=== PATIENT | female | born 1995 | race Two or more races ===

== ENCOUNTER 2023-04-09 15:31 | Emergency (ER) | payer BC ==
[~2023-04-09] VITALS: Ht 182.9 cm; Wt 99.8 kg
[2023-04-09] MEDS ORDERED: METHYLPHENIDATE10 M6 PO (15:38)
[2023-04-09] MEDS ORDERED: ACETAMINOPHEN 500 MG GEL..CAP PO ONE (17:15)
[2023-04-09 17:34] LABS: HEMATOCRIT 36.8 % (36.0-45.00); HEMOGLOBIN 12.7 g/dL (12.0-15.00); MEAN CELL VOLUME 87.7 fL (80.00-100.00); MEAN CORPUSCULAR HEMOGLOBIN 30.1 pg (27.00-32.0); MEAN CORPUSCULAR HGB CONC 34.4 g/dl (32.0-36.0); PLATELET COUNT 321 K/uL (150-450); RED CELL DISTRIBUTION WIDTH 12.6 % (11.5-14.5)
[2023-04-09 18:52] LABS: CALCIUM 9.3 mg/dL (8.5-10.1); CREATININE SERUM 0.88 mg/dL (0.55-1.02); GFR 77.08; POTASSIUM 3.79 mEq/L (3.5-5.1)
[2023-04-09 19:01] LABS: ABG PO2 112.8 mmHg (80-100); ABG pCO2 34.8 mmHg (35-45); BASE EXCESS -0.5 mmol/l; BICARBONATE 23.1 mmol/l (23-25); SaO2 98.6 %; Tco2 24.1 mmol/l; allen test SATISFACTORY; o2 21 %; puncture site RADIAL LEFT
== END 2023-04-09 19:29 | disposition home or self-care (01) ==
LOC: ER 15:31
PROVIDERS: Nurse Practitioner Family
DX: R07.89 Other chest pain (principal); R53.1 Weakness; F90.8 Attention-deficit hyperactivity disorder, other type; M79.7 Fibromyalgia; Z20.822 Contact with and (suspected) exposure to COVID-19